=== PATIENT | female | born 1995 | race American Indian/Alaskan Native ===

== ENCOUNTER 2018-09-25 19:51 | Emergency (ER) | payer OTHER ==
[2018-09-25 20:33] VITALS: BP 123/73
--- NOTE | 2018-09-25 20:34 | Emergency Department Report ---
Chief Complaint: Dyspnea/Respdistress Stated Complaint: SOB/CP Time Seen by Provider: 09/25/18 20:30 - HPI History of Present Illness: This is a 23 y.o. female that presents with chest pain and SOB since yesterday. - ROS Review of Systems: cough and substernal chest pain - Exam Vital Signs: Vital Signs 09/25/18 20:31 Temperature 98.9 F Pulse Rate 76 Respiratory 18 Rate Blood Pressure 123/73 O2 Sat by Pulse 99 Oximetry MSE screening note: Focused history and physical exam performed. Due to findings the following was ordered: CXR and EKG Fast track for further evaluation. ED Disposition for MSE Condition: Stable
--- NOTE | 2018-09-25 21:53 | XRay Report ---
PROCEDURE: XR CHEST ROUTINE 2V TECHNIQUE: PA and lateral chest HISTORY: Chest Pain COMPARISONS: No priors FINDINGS: Cardiomediastinal silhouette within normal limits. No evidence of airspace consolidation or pleural effusions The pulmonary vasculature is within normal limits. IMPRESSION: No radiographic evidence of acute cardiopulmonary disease.. This document is electronically signed by Samson Osipna MD., September 25 2018 09:51:33 PM ET
--- NOTE | 2018-09-25 23:14 | Emergency Department Report ---
- General Chief Complaint: Dyspnea/Respdistress Stated Complaint: SOB/CP Time Seen by Provider: 09/25/18 20:30 Source: patient Mode of arrival: Ambulatory Limitations: No Limitations - History of Present Illness Initial Comments: 23-year-old -[place] female comes in for shortness of breath chest pain while coughing and when breathing in deep and hard 2 days. Patient reports she started clzh-esc-enatixl medications such as NyQuil and TheraFlu and Tylenol with no relief. Patient denies any fever or nausea no vomiting but does admit to nasal congestion and rhinorrhea and dry cough. SHe denies any allergies to medications currently takes no medications on a daily basis and has no known drug allergies. MD Complaint: cough, nasal congestion, other (rhinorrhea) - Related Data Previous Rx's Medication Instructions Recorded Last Taken Type Benzonatate [Tessalon Perle] 100 mg PO Q8H PRN #15 capsule 09/25/18 Unknown Rx Cetirizine HCl [ZyrTEC] 10 mg PO QDAY #15 capsule 09/25/18 Unknown Rx Allergies Allergy/AdvReac Type Severity Reaction Status Date / Time No Known Allergies Allergy Unverified 09/25/18 20:13 ED Review of Systems ROS: Stated complaint: SOB/CP Other details as noted in HPI ENT: congestion, other (rhinorrhea) Respiratory: cough ED Past Medical Hx - Social History Smoking Status: Current Every Day Smoker Substance Use Type: Alcohol, Marijuana - Medications Home Medications: Home Medications Medication Instructions Recorded Confirmed Last Taken Type Benzonatate [Tessalon Perle] 100 mg PO Q8H PRN #15 capsule 09/25/18 Unknown Rx Cetirizine HCl [ZyrTEC] 10 mg PO QDAY #15 capsule 09/25/18 Unknown Rx ED Physical Exam - General Limitations: No Limitations General appearance: alert, in no apparent distress - Head Head exam: Present: atraumatic, normocephalic - Eye Eye exam: Present: PERRL, EOMI - ENT ENT exam: Present: mucous membranes moist - Neck Neck exam: Present: normal inspection, full ROM. Absent: lymphadenopathy - Respiratory Respiratory exam: Present: normal lung sounds bilaterally. Absent: respiratory distress - Cardiovascular Cardiovascular Exam: Present: regular rate, normal rhythm. Absent: systolic murmur, diastolic murmur, rubs, gallop - GI/Abdominal GI/Abdominal exam: Present: soft, normal bowel sounds - Neurological Exam Neurological exam: Present: alert, oriented X3 - Psychiatric Psychiatric exam: Present: normal affect, normal mood - Skin Skin exam: Present: warm, dry, intact, normal color. Absent: rash ED Course Vital Signs 09/25/18 20:31 Temperature 98.9 F Pulse Rate 76 Respiratory 18 Rate Blood Pressure 123/73 O2 Sat by Pulse 99 Oximetry ED Medical Decision Making - Radiology Data Radiology results: report reviewed Chest x-ray normal examination - Medical Decision Making Chest x-ray negative. Take Zyrtec's 10 mg daily and Tessalon Perles for cough. Follow with primary care provider if symptoms persist Critical care attestation.: If time is entered above; I have spent that time in minutes in the direct care of this critically ill patient, excluding procedure time. ED Disposition Clinical Impression: Allergic rhinitis Qualifiers: Allergic rhinitis trigger: unspecified Allergic rhinitis seasonality: unspecified Qualified Code(s): J30.9 - Allergic rhinitis, unspecified Disposition: - TO HOME OR SELFCARE Is pt being admited?: No Does the pt Need Aspirin: No Condition: Stable Instructions: Allergic Rhinitis (ED) Additional Instructions: Please take medications as prescribed. Increase her water intake while taking medication. If his symptoms persist or gets worse follow-up with the primary care provider I have listed one below for your convenience. Prescriptions: Benzonatate [Tessalon Perle] 100 mg PO Q8H PRN #15 capsule PRN Reason: Cough Cetirizine HCl [ZyrTEC] 10 mg PO QDAY #15 capsule Referrals: PRIMARY CARE, [Primary Care Provider] - 3-5 Days [facility] [Provider Group] - 3-5 Days Forms: Work/School Release Form(ED)
== END 2018-09-25 23:28 | disposition home or self-care (01) ==
LOC: ED 19:51
DX: J30.9 Allergic rhinitis, unspecified (principal); F17.200 Nicotine dependence, unspecified, uncomplicated; F12.10 Cannabis abuse, uncomplicated
CPT/HCPCS: 71046; 93005; 93010